=== PATIENT | male | born 1985 | race American Indian/Alaskan Native ===

== ENCOUNTER 2019-10-24 14:15 | Emergency (ER) | payer SELFPAY ==
[2019-10-24 14:24] VITALS: BP 123/89
--- NOTE | 2019-10-24 15:24 | Emergency Department Report ---
ED ENT HPI - General Chief complaint: Dental/Oral Stated complaint: TOOTHACHE Time Seen by Provider: 10/24/19 14:33 Source: patient Mode of arrival: Ambulatory Limitations: No Limitations - History of Present Illness Initial comments: This is a 34-year-old male nontoxic, well nourished in appearance, no acute signs of distress presents to the ED with c/o of acute on chronic intermittent toothache x months. Patient denies following up with a dentist. Patient describes toothache as aching level of 8 out of 10. Patient denies any facial swelling. Patient denies any numbness, tingling, fever, chills, headache, stiff neck, abdominal pain, chest pain, shortness of breath. Patient stated allergies to cipro and sulfa. MD complaint: tooth pain -: month(s) Location: tooth # 1 - pain here Severity: mild Severity scale (0 -10): 8 Quality: aching Consistency: constant Improves with: none Worsens with: none Associated Symptoms: toothache, pain with swallowing, sore throat. denies: fe jose r, cough, gum swelling, tinnitus, hearing loss, discharge from ear, rhinorrhea - Related Data Allergies Allergy/AdvReac Type Severity Reaction Status Date / Time ciprofloxacin [From Cipro] Allergy Unknown Verified 10/24/19 14:21 Sulfa (Sulfonamide Allergy Unknown Verified 10/24/19 14:21 Antibiotics) ED Dental HPI - General Chief complaint: Dental/Oral Stated complaint: TOOTHACHE Time Seen by Provider: 10/24/19 14:33 Source: patient Mode of arrival: Ambulatory Limitations: No Limitations - Related Data Allergies Allergy/AdvReac Type Severity Reaction Status Date / Time ciprofloxacin [From Cipro] Allergy Unknown Verified 10/24/19 14:21 Sulfa (Sulfonamide Allergy Unknown Verified 10/24/19 14:21 Antibiotics) ED Review of Systems ROS: Stated complaint: TOOTHACHE Other details as noted in HPI Constitutional: denies: chills, fever Eyes: denies: eye pain, eye discharge, vision change ENT: dental pain. denies: ear pain, throat pain Respiratory: denies: cough, shortness of breath, wheezing Cardiovascular: denies: chest pain, palpitations Endocrine: no symptoms reported Gastrointestinal: denies: abdominal pain, nausea, diarrhea Genitourinary: denies: urgency, dysuria Musculoskeletal: denies: back pain, joint swelling, arthralgia Skin: denies: rash, lesions Neurological: denies: headache, weakness, paresthesias Psychiatric: denies: anxiety, depression Hematological/Lymphatic: denies: easy bleeding, easy bruising ED Past Medical Hx - Past Medical History Previous Medical History?: No - Surgical History Past Surgical History?: No - Social History Smoking Status: Current Every Day Smoker Substance Use Type: None ED Physical Exam - General Limitations: No Limitations General appearance: alert, in no apparent distress - Head Head exam: Present: atraumatic, normocephalic - Expanded ENT Exam Expanded Ear exam: Present: normal external inspection Mouth exam: Present: normal external inspection. Absent: drooling, trismus, muffled voice Teeth exam: Present: dental caries, dental tenderness #, other (no facial swelling). Absent: fractured tooth #, gingival enlargement Throat exam: Positive: normal inspection, other (uvula midline. no swelling). Negative: tonsillar erythema, tonsillomegaly, tonsillar exudate, R peritonsillar mass, L peritonsillar mass - Neck Neck exam: Present: normal inspection, full ROM. Absent: tenderness, meningi smus, lymphadenopathy - Extremities Exam Extremities exam: Present: normal inspection, full ROM - Back Exam Back exam: Present: normal inspection, full ROM - Neurological Exam Neurological exam: Present: alert, oriented X3, normal gait - Psychiatric Psychiatric exam: Present: normal affect, normal mood - Skin Skin exam: Present: warm, dry, intact, normal color. Absent: rash ED Course Vital Signs 10/24/19 14:23 Temperature 98.2 F Pulse Rate 90 Respiratory 18 Rate Blood Pressure 123/89 O2 Sat by Pulse 98 Oximetry - Reevaluation(s) Reevaluation #1: 10/24/19 15:27 Patient is speaking in full sentences with no signs of distress noted. ED Medical Decision Making - Medical Decision Making This is a 34-year-old male that presents with nonmedical emergency. Patient is stable and was examined by me. Patient is asymptomatic and denies any symptoms. I will refer the patient [facility] and health Department. At time of discharge, the patient does not seem toxic or ill in appearance. No acute signs of distress noted. Patient agrees to discharge treatment plan of care. No further questions noted by the patient. Critical care attestation.: If time is entered above; I have spent that time in minutes in the direct care of this critically ill patient, excluding procedure time. ED Disposition Clinical Impression: Toothache Disposition: MED SCREENING EXAM-LEFT Is pt being admited?: No Does the pt Need Aspirin: No Condition: Stable Instructions: Toothache (ED) Additional Instructions: Follow-up with a dentist doctor in 3-5 days or if symptoms worsen and continue return to emergency room as soon as possible. Referrals: PRIMARY [facility] [Referring] - 3-5 Days SHERRIE MEDEL MD [Staff Physician] - 3-5 Days [facility] [Outside] - 3-5 Days
== END 2019-10-24 15:40 | disposition left against medical advice (07) ==
LOC: ED 14:15
DX: K08.89 Other specified disorders of teeth and supporting structures (principal); F17.200 Nicotine dependence, unspecified, uncomplicated; Z88.2 Allergy status to sulfonamides; Z88.1 Allergy status to other antibiotic agents
CPT/HCPCS: 99281

== ENCOUNTER 2021-10-10 15:30 | Emergency (ER) | payer SELFPAY ==
[2021-10-10] MEDS ORDERED: ONDANSETRON 4 MG/2 ML INJ IV ONE (18:34)
[2021-10-10] MEDS ORDERED: LACTATED RINGERS 1,000 ML IV ONE (18:34)
--- NOTE | 2021-10-10 18:34 | Emergency Department Report ---
ED N/V/D HPI - General Chief complaint: Nausea/Vomiting/Diarrhea Stated complaint: NAUSEA/VOMITING/RT SIDE PAIN Time Seen by Provider: 10/10/21 18:33 Source: patient Mode of arrival: Ambulatory Limitations: No Limitations - History of Present Illness Initial comments: Patient presents with nausea, vomiting, and diarrhea for 3 days. He has not had hematemesis or coffee-ground emesis. There is no melenic stool. He has no history of recent travel or trauma. He has been around somebody that has been sick with similar symptoms. He believes that is where he contracted his illness from. Patient has not been on antibiotics. He has not been out of the country. He is not had fevers or chills. There is no cough or congestion. - Related Data Previous Rx's Medication Instructions Recorded Last Taken Type Ondansetron [Zofran ODT TAB] 8 mg PO Q8HR PRN #15 tab.rapdis 10/10/21 Unknown Rx Allergies Allergy/AdvReac Type Severity Reaction Status Date / Time ciprofloxacin [From Cipro] Allergy Unknown Verified 10/24/19 14:21 Sulfa (Sulfonamide Allergy Unknown Verified 10/24/19 14:21 Antibiotics) ED Review of Systems ROS: Stated complaint: NAUSEA/VOMITING/RT SIDE PAIN Other details as noted in HPI Comment: All other systems reviewed and negative Constitutional: denies: fever Eyes: denies: vision change ENT: denies: throat pain Respiratory: denies: cough Cardiovascular: denies: chest pain Endocrine: denies: unexplained weight loss Gastrointestinal: as per HPI Genitourinary: denies: dysuria Musculoskeletal: denies: back pain Skin: denies: rash Neurological: denies: headache Hematological/Lymphatic: denies: easy bruising ED Past Medical Hx - Past Medical History Previous Medical History?: No - Family History Family history: no significant - Social History Smoking Status: Current Every Day Smoker (We discussed tobacco cessation x3 jose enrique mirian) Substance Use Type: None - Medications Home Medications: Home Medications Medication Instructions Recorded Confirmed Last Taken Type Ondansetron [Zofran ODT TAB] 8 mg PO Q8HR PRN #15 tab.rapdis 10/10/21 Unknown Rx ED Physical Exam - General Limitations: No Limitations, Other (Pulse ox noted and normal) General appearance: alert, in no apparent distress - Head Head exam: Present: atraumatic, normocephalic - Eye Eye exam: Present: normal appearance, EOMI - ENT ENT exam: Present: normal orophraynx, normal external ear exam - Neck Neck exam: Present: normal inspection. Absent: meningismus - Respiratory Respiratory exam: Present: normal lung sounds bilaterally. Absent: respiratory distress - Cardiovascular Cardiovascular Exam: Present: regular rate, normal rhythm - GI/Abdominal GI/Abdominal exam: Present: soft, tenderness (Epigastric). Absent: distended, guarding, rebound - Extremities Exam Extremities exam: Present: normal capillary refill - Back Exam Back exam: Absent: CVA tenderness (R), CVA tenderness (L) - Neurological Exam Neurological exam: Present: alert, oriented X3, CN II-XII intact, normal gait. Absent: motor sensory deficit - Psychiatric Psychiatric exam: Present: normal affect, normal mood - Skin Skin exam: Present: warm, dry ED Course Vital Signs 10/10/21 18:33 Temperature 98.5 F Pulse Rate 81 Respiratory 18 Rate Blood Pressure 125/74 [Right] O2 Sat by Pulse 96 Oximetry - Reevaluation(s) Reevaluation #1: 10/10/21 18:34 IV and labs ordered. Old records noted. Reevaluation #2: 10/10/21 19:44 Labs are noted. Patient was discharged. ED Medical Decision Making - Lab Data Result diagrams: 10/10/21 18:37 - Medical Decision Making Patient presents with nausea, vomiting, and diarrhea. He does not have any evidence of intractable vomiting. He is not throwing up here at all. He certainly does not appear to be jaundiced. I am not concerned for acute hepatitis or pancreatitis. He has no evidence of electrolyte derangement. There is no renal dysfunction. Patient has no peritoneal findings on exam. There is no tenderness over the right lower quadrant suggestive of appendicitis. He does not have distention or tympany to suggest bowel obstruction. This is likely a viral enteritis and he states that he has been around someone with similar symptoms. Critical Care Time: No Critical care attestation.: If time is entered above; I have spent that time in minutes in the direct care of this critically ill patient, excluding procedure time. ED Disposition Clinical Impression: Nausea vomiting and diarrhea Disposition: HOME / SELF CARE / HOMELESS Is pt being admited?: No Condition: Stable Instructions: Nausea and Vomiting, Adult, Food Choices to Help Relieve Diarrhea, Adult Additional Instructions: Have a bland diet. Drink plenty water. Return for problems. Follow-up with your regular doctor or the referral doctor for recheck. Prescriptions: Ondansetron [Zofran ODT TAB] 8 mg PO Q8HR PRN #15 tab.rapdis PRN Reason: Nausea Referrals: PRIMARY CARE, [Referring] - 3-5 Days PRANAV OWENS MD [Staff Physician] - 3-5 Days
[2021-10-10 19:10] LABS: BUN/Creatinine Ratio 7; Blood Urea Nitrogen 8 mg/dL (9-20); Calcium 8.5 mg/dL (8.4-10.2); Hemolysis Index 21
[2021-10-10 20:27] VITALS: BP 138/86
== END 2021-10-10 22:02 | disposition home or self-care (01) ==
LOC: ED 15:30
DX: R11.2 Nausea with vomiting, unspecified (principal); R19.7 Diarrhea, unspecified; F17.200 Nicotine dependence, unspecified, uncomplicated; Z88.1 Allergy status to other antibiotic agents; Z88.2 Allergy status to sulfonamides; Z79.899 Other long term (current) drug therapy
CPT/HCPCS: 36415; 80048; 96361; 96374; 99283; J2405; J7120